=== PATIENT | female | born 1995 | race Caucasian/White ===

== ENCOUNTER 2016-11-28 12:16 | Inpatient (IN) | payer MEDICAID ==
[2016-11-28] MEDS ORDERED: BRETHINE SUB-Q PRN (15:35)
[2016-11-28] MEDS ORDERED: BRETHINE IVP PRN (15:35)
[2016-11-28] MEDS ORDERED: MINERAL OIL PO PRN (15:35)
[2016-11-28] MEDS ORDERED: SUBLIMAZE IV PRN (15:35)
[2016-11-28] MEDS ORDERED: ePHEDrine SULFATE IV PRN (15:35)
[2016-11-28] MEDS ORDERED: STADOL IV PRN (15:35)
[2016-11-28] MEDS ORDERED: XYLOCAINE 2% INFILTRATI ONE (16:00)
[2016-11-28] MEDS ORDERED: PITOCin/NS 20 UNIT/1000ML DRIP 20 UNITS/1,000 ML BAG IV SCH (16:00)
[2016-11-28] MEDS ORDERED: LACTATED RINGERS 1,000 ML IV SCH (16:00)
[2016-11-28] MEDS ORDERED: PITOCin/NS 30 UNIT/500ML 30 UNITS/500 ML BAG IV SCH (16:00)
[2016-11-28 16:25] LABS: Hematocrit 32.6 % (30.3-42.9); Hemoglobin 11.1 gm/dl (10.1-14.3); Mean Corpuscular HGB Conc 34 % (30-34); Mean Corpuscular Hemoglobin 29 pg (28-32); Mean Corpuscular Volume 86 fl (79-97); Platelet Count 183 K/mm3 (140-440); Red Blood Count 3.81 M/mm3 (3.65-5.03); Red Cell Distribution Width 13.3 % (13.2-15.2); White Blood Count 12.6 K/mm3 (4.5-11.0)
--- NOTE | 2016-11-28 17:21 | History and Physical Report ---
History of Present Illness Date of examination: 11/28/16 Date of admission: 11/28/16 12:17 Chief complaint: contractions History of present illness: This is a 21 yo at 39 weeks here for contractions. Came into triage c/o of cotnractions and changed cervix from 3 to 4 cm. She started her care at 18 weeks. OB problem list: late entry positive antibody ( weka) repeat neg OB labs : B+ antibody positieve H/H 10.9/33.5 pap normal Rubella Imm RPR nR urine cultrue neg hep neg HIV neg plt 285 HSV 2 neg AA sickle david neg chlam neg mcneil iup EDC 12/06/16 h/h 10.9/33.2 scan cystic area near nose referred to [facility] david neg chlam neg GBS neg Past History Past Medical History: no pertinent history Past Surgical History: no surgical history Family/Genetic History: diabetes, heart disease, other (hypercholesterolemia ) Social history: no significant social history, single. denies: smoking, alcohol abuse, prescription drug abuse - Obstetrical History Expected Date of Delivery: 12/06/16 Actual Gestation: 38 Week(s) 6 Day(s) : 2 Para: 1 Hx # Term Pregnancies: 1 Number of Pregnancies: 0 Spontaneous Abortions: 0 Induced : 0 Number of Living Children: 1 Medications and Allergies Allergies Allergy/AdvReac Type Severity Reaction Status Date / Time No Known Allergies Allergy Verified 10/23/13 23:46 Home Medications Medication Instructions Recorded Confirmed Last Taken Type Pnv with Ca,No.72/Iron/FA 1 tab PO DAILY 10/13/13 11/28/16 1 Day Ago History [ Plus Tablet] Active Meds: Active Medications Butorphanol Tartrate (Stadol) 2 mg IV Q2H PRN PRN Reason: Pain , Severe (7-10) Last Admin: 11/28/16 16:33 Dose: 2 mg Fentanyl (Sublimaze) 100 mcg IV Q2H PRN PRN Reason: Labor Pain Lactated Ringer's (Lactated Ringers) 1,000 mls @ 125 mls/hr IV DIRECT ARLENE Last Admin: 11/28/16 16:13 Dose: 125 mls/hr Oxytocin/Sodium Chloride (Pitocin/Ns 20 Unit/1000ml Drip) 20 units in 1,000 mls @ 125 mls/hr IV DIRECT ARLENE Oxytocin/Sodium Chloride (Pitocin/Ns 30 Unit/500ml) 30 units in 500 mls @ 1 mls /hr IV TITR ARLENE; 1 MILLIUNITS/MIN PRN Reason: Protocol Last Admin: 11/28/16 16:16 Dose: 2 milliunits/min, 2 mls/hr Mineral Oil (Mineral Oil) 30 ml PO QHS PRN PRN Reason: Constipation Review of Systems All systems: negative Genitourinary: contractions - Vital Signs Vital signs: Vital Signs Pulse BP Pulse Ox 92 H 96/59 96 11/28/16 12:32 11/28/16 12:32 11/28/16 12:32 Temp Pulse Resp BP Pulse Ox 97.4 F L 93 H 16 101/66 97 11/28/16 16:10 11/28/16 16:10 11/28/16 16:10 11/28/16 16:10 11/28/16 12:57 - Physical Exam Breasts: Positive: deferred, normal Cardiovascular: Regular rate, Normal S1 Lungs: Positive: Clear to auscultation, Normal air movement Abdomen: Positive: normal appearance, soft, normal bowel sounds Genitourinary (Female): Positive: normal external genitalia, normal perenium Vulva: both: normal Vagina: Positive: normal moisture Uterus: Positive: normal size, normal contour Adnexa: both: normal Anus/Rectum: Positive: normal perianal skin Extremities: Positive: normal Deep Tendon Reflex Grade: Normal +2 - Obstetrical FHR: category 1 Uterine Contraction Monitor Mode: External Cervical Dilatation: 4 Uterine Contraction Pattern: Irregular Uterine Tone Measurement Phase: Contraction Uterine Contraction Intensity: Mild Results Result Diagrams: 11/28/16 15:10 Abnormal lab results 11/28/16 Range/Units 15:10 WBC 12.6 H (4.5-11.0) K/mm3 All other labs normal. Assessment and Plan A/P IUP 38+6 weeks early labor GBS neg consider pitocin for aumentation expect vaginal delivery
[2016-11-28] MEDS ORDERED: LANSINOH TP PRN (18:54)
[2016-11-28] MEDS ORDERED: DULCOLAX PR PRN (18:54)
[2016-11-28] MEDS ORDERED: MILK OF MAGNESIA PO PRN (18:54)
[2016-11-28] MEDS ORDERED: TUCKS PAD TP PRN (18:54)
[2016-11-28] MEDS ORDERED: PHENERGAN PR PRN (18:54)
[2016-11-28] MEDS ORDERED: TYLENOL PO PRN (18:54)
[2016-11-28] MEDS ORDERED: PHENERGAN PO PRN (18:54)
[2016-11-28] MEDS ORDERED: BENADRYL PO PRN (18:54)
--- NOTE | 2016-11-28 18:54 | Procedure Note ---
OB Delivery Note - Delivery Date of Delivery: 11/28/16 (6-3ozlb female @ 1837) Surgeon: MICHELE COOPER Estimated blood loss: 200cc - Vaginal Delivery presentation: vertex Delivery position: OA Delivery augmentation: rupture of membranes Delivery monitor: external FHT, external uterine Route of delivery: Delivery placenta: spontaneous Delivery cord: 3 umbilical vessels Episiotomy: none Delivery laceration: none Anesthesia: none, epidural - Infant A at 1 minute: 8 at 5 minutes: 9 Infant Gender: Female (Progressed to complete at 1832. Pushed twice for viable female over intact perineum. Short cord, patient placed skin to skin. Spont. placenta, bleeding heavy, Pitocin started and fundus messaged firm. Bleeding scant. No lacerations on inspection.)
[2016-11-28] MEDS ORDERED: SODIUM CHLORIDE FLUSH SYRINGE 10 ML IV SCH (19:00)
[2016-11-28] MEDS: MOTRIN PO SCH (22:24)
[2016-11-29] MEDS: NORCO 5/325 PO PRN (00:52)
[2016-11-29] MEDS: MOTRIN PO SCH ×2 (04:22→10:53)
[2016-11-29 08:04] LABS: Hematocrit 34.3 % (30.3-42.9); Hemoglobin 11.7 gm/dl (10.1-14.3)
--- NOTE | 2016-11-29 08:22 | Progress Note ---
Assessment and Plan O: VSS AF PP H/H: pending A: Stable PP Day 1 P: D/c home per pt request Routine PP orders Subjective - Subjective Date of service: 11/29/16 Patient reports: appetite normal, voiding normally, pain well controlled, ambulating normally : doing well, nursing well Objective - Vital Signs Latest vital signs: Vital Signs Temp Pulse Pulse Resp BP BP Pulse Ox 11/29/16 04:15 98.2 F 59 L 20 87/43 11/29/16 00:52 18 11/29/16 00:00 98.3 F 62 20 98/53 11/28/16 22:24 18 11/28/16 20:45 98.9 F 61 20 97/54 11/28/16 20:02 64 103/56 11/28/16 19:52 56 L 105/56 11/28/16 19:51 97.6 F 66 14 108/55 11/28/16 19:48 66 108/55 11/28/16 19:02 85 109/58 11/28/16 16:10 97.4 F L 93 H 16 101/66 11/28/16 16:08 93 H 101/66 11/28/16 12:57 82 97 11/28/16 12:53 92 H 93 11/28/16 12:52 89 96 11/28/16 12:47 110 H 96 11/28/16 12:42 80 98 11/28/16 12:37 97 H 97 11/28/16 12:32 92 H 96/59 96 Intake and Output 11/28/16 11/29/16 11/29/16 22:59 06:59 14:59 Intake Total 700 Output Total 300 Balance 400 Intake: IV 500 Lactated Ringers 1,000 ml 500 @ 125 mls/hr IV DIRECT ARLENE Rx#:[id number] Oral 200 Output: Urine 300 Void 300 Other: Total, Intake Amount 200 Total, Output Amount 300 Weight 66.678 kg Estimated Blood Loss 200 - Exam Breasts: Present: deferred Abdomen: Present: normal appearance, soft. Absent: distention, tenderness Vulva: both: normal Uterus: Present: normal, firm, fundal height below umbilicus. Absent: bogginess , tenderness Extremities: Present: normal - Labs Labs: Abnormal lab results 11/28/16 Range/Units 15:10 WBC 12.6 H (4.5-11.0) K/mm3
--- NOTE | 2016-11-29 08:24 | Discharge Summary ---
Providers - Providers Date of Admission: 11/28/16 12:17 Date of discharge: 11/29/16 Attending physician: TONI PISANO MD Primary care physician: TONI PISANO MD Hospitalization Reason for admission: active labor, IUP at term Delivery: Episiotomy: none Laceration: none Other procedures: none complications: none Discharge diagnosis: IUP at term delivered Loiza baby: female Condition at discharge: Good Disposition: DC-01 TO HOME OR SELFCARE Plan - Discharge Medications Prescriptions: HYDROcodone/APAP 5-325 [[place] 5-325 mg TAB] 2 each PO Q4H PRN #30 tablet PRN Reason: Pain, Moderate (4-6) Ibuprofen [Motrin 600 MG tab] 600 mg PO Q6HR PRN #30 tablet PRN Reason: Pain - Provider Discharge Summary Activity: routine, no sex for 6 weeks, no heavy lifting 4 weeks, no strenuous exercise Diet: routine Instructions: routine Additional instructions: [] Smoking cessation referral if applicable(refer to patient education folder for contact #) [] Refer to [facility] Booklet Call your doctor immediately for: * Fever > 100.5 * Heavy vaginal bleeding ( >1 pad per hour) * Severe persistent headache * Shortness of breath * Reddened, hot, painful area to leg or breast * Drainage or odor from incision. * Keep incision clean and dry at all times and follow doctor's instructions regarding bathing/showering - Follow up plan Follow up: TONI PISANO MD [Primary Care Provider] - MICHELE COOPER CNM [Advanced Practice Nurse] - (RTO 4 weeks )
[2016-11-29] MEDS ORDERED: M-M-R II VACCINE SUB-Q ONE (18:00)
[2016-11-30] MEDS: NORCO 5/325 PO PRN (01:01)
[2016-11-30] MEDS ORDERED: BOOSTRIX IM ONE (06:00)
[2016-11-30] MEDS: MOTRIN PO SCH ×2 (06:08)
[2016-11-30 09:11] VITALS: BP 95/53
== END 2016-11-30 10:20 | disposition home or self-care (01) | DRG 775 ==
LOC: TRG 12:16 → LD 12:17 → TRG 12:18 → OB 20:58
PROVIDERS: ADMIT Obstetrics & Gynecology; ATTEND Obstetrics & Gynecology
PROC: 10E0XZZ Delivery of Products of Conception, External Approach (ICD-10-PCS; principal; 2016-11-28)
PROC: 00HU33Z Insertion of Infusion Device into Spinal Canal, Percutaneous Approach (ICD-10-PCS; 2016-11-28)
PROC: 3E0R3CZ (ICD-10-PCS; 2016-11-28)
DX: O80 Encounter for full-term uncomplicated delivery (principal); Z3A.38 38 weeks gestation of pregnancy; Z37.0 Single live birth
CPT/HCPCS: 36415; 85014; 85018; 85027; 86850; 86900; 86901; 99211; A6250; G0463; J0595; J2590; J7120

== ENCOUNTER 2017-12-22 20:40 | Outpatient (CLI) | payer MEDICAID ==
[2017-12-22] MEDS ORDERED: LACTATED RINGERS 1,000 ML IV ONE (21:01)
[2017-12-22 21:28] VITALS: BP 101/57
[2017-12-22 21:31] LABS: Bilirubin,Urine NEG (Negative); Blood,Urine SM (Negative); Color,Urine Yellow (Yellow); Mucus,Urine FEW /HPF; Urobilinogen,Urine < 2.0 mg/dL (<2.0)
[2017-12-22] MEDS ORDERED: ANCEF/NS 1 GM/50 ML 1 GM/50 ML BAG IV ONE (22:11)
== END 2017-12-22 23:36 | disposition home or self-care (01) ==
LOC: TRG 20:40
PROVIDERS: ATTEND Obstetrics & Gynecology
DX: O47.02 False labor before 37 completed weeks of gestation, second trimester (principal); Z3A.20 20 weeks gestation of pregnancy
CPT/HCPCS: 81001; 96360; 96361; 96365; J0690; J7120

== ENCOUNTER 2017-12-26 20:23 | Outpatient (CLI) | payer MEDICAID ==
[2017-12-26] MEDS ORDERED: LACTATED RINGERS 1,000 ML IV ONE ×2 (20:53→22:39)
[2017-12-26 21:14] LABS: Bacteria,Urine 2+ /HPF (Negative); Bilirubin,Urine NEG (Negative); Blood,Urine NEG (Negative); Color,Urine Yellow (Yellow); Mucus,Urine 2+ /HPF
[2017-12-26 21:15] LABS: WBC,Urine > 182.0 /HPF (0.0-6.0)
[2017-12-26 22:56] LABS: Hematocrit 27.8 % (30.3-42.9); Hemoglobin 9.4 gm/dl (10.1-14.3); Mean Corpuscular HGB Conc 34 % (30-34); Mean Corpuscular Hemoglobin 30 pg (28-32); Mean Corpuscular Volume 88 fl (79-97); Platelet Count 243 K/mm3 (140-440); Red Blood Count 3.15 M/mm3 (3.65-5.03); Red Cell Distribution Width 12.6 % (13.2-15.2)
[2017-12-26] MEDS ORDERED: ROCEPHIN/NS 1 GM/50 ML 1 GM/50 ML BAG IV ONE (23:00)
[2017-12-26 23:41] LABS: Albumin 3.6 g/dL (3.9-5); BUN/Creatinine Ratio 13; Blood Urea Nitrogen 5 mg/dL (7-17); Hemolysis Index 0
[2017-12-26 23:54] LABS: Alanine Aminotransferase < 5 units/L (7-56)
[2017-12-27] MEDS ORDERED: TYLENOL PO ONE (00:12)
[2017-12-27 00:30] VITALS: BP 101/53
== END 2017-12-27 00:45 | disposition home or self-care (01) ==
LOC: TRG 20:23
PROVIDERS: ATTEND Obstetrics & Gynecology
DX: O26.892 Other specified pregnancy related conditions, second trimester (principal); R10.11 Right upper quadrant pain; Z3A.20 20 weeks gestation of pregnancy
CPT/HCPCS: 36415; 80053; 81001; 85027; 86850; 86900; 86901; 87086; 96360; 96361; 96365; J0696; J7120; 87076; 87186

== ENCOUNTER 2018-01-01 08:20 | Inpatient (IN) | payer MEDICAID ==
[2018-01-01] MEDS ORDERED: LACTATED RINGERS 500 ML IV ONE ×2 (08:22→10:30)
[2018-01-01] MEDS ORDERED: LACTATED RINGERS 1,000 ML ONE ×2 (08:47→13:28)
[2018-01-01 09:10] LABS: Basophils # (Auto) 0.1 K/mm3 (0.0-0.1); Basophils % (Auto) 0.5 % (0.0-1.8); Eosinophils % (Auto) 0.3 % (0.0-4.3); Hematocrit 28.7 % (30.3-42.9); Hemoglobin 9.9 gm/dl (10.1-14.3); Lymphocytes # (Auto) 2.6 K/mm3 (1.2-5.4); Lymphocytes % (Auto) 23.5 % (13.4-35.0); Mean Corpuscular HGB Conc 35 % (30-34); Mean Corpuscular Hemoglobin 30 pg (28-32); Mean Corpuscular Volume 87 fl (79-97); Monocytes # (Auto) 0.9 K/mm3 (0.0-0.8); Monocytes % (Auto) 7.9 % (0.0-7.3); Red Blood Count 3.29 M/mm3 (3.65-5.03); Red Cell Distribution Width 12.8 % (13.2-15.2)
[2018-01-01 09:19] LABS: Bacteria,Urine 2+ /HPF (Negative); Bilirubin,Urine NEG (Negative); Blood,Urine NEG (Negative); Color,Urine Yellow (Yellow); Mucus,Urine 1+ /HPF; Protein,Urine <15 mg/dL mg/dL (Negative); Urobilinogen,Urine < 2.0 mg/dL (<2.0)
[2018-01-01] MEDS ORDERED: ANCEF/NS 1 GM/50 ML 1 GM/50 ML BAG IV ONE (10:30)
[2018-01-01 11:17] LABS: Platelet Count 314 K/mm3 (140-440)
[2018-01-01] MEDS: BRETHINE SUB-Q SCH ×2 (11:46→12:15)
[2018-01-01] MEDS ORDERED: CYTOTEC PR SCH (14:00)
[2018-01-01] MEDS ORDERED: TYLENOL PO PRN ×2 (14:21→14:54)
[2018-01-01] MEDS ORDERED: MAGNESIUM SULFATE 4GM/100ML 4 GM/100 ML BAG IV ONE (14:21)
[2018-01-01] MEDS ORDERED: COLACE PO PRN (14:21)
[2018-01-01] MEDS ORDERED: POLYCILLIN/NS 2 GM/100 ML 2 GM/100 ML BAG IV ONE (14:21)
[2018-01-01] MEDS ORDERED: CYTOTEC ONE (14:29)
[2018-01-01] MEDS ORDERED: PITOCin/NS 20 UNIT/1000ML DRIP 20,000 MILLIUNITS/1,000 ML BAG IV ONE ×3 (14:29→18:34)
[2018-01-01] MEDS ORDERED: METHERGINE IM ONE (14:35)
--- NOTE | 2018-01-01 14:43 | History and Physical Report ---
History of Present Illness Date of examination: 01/01/18 Chief complaint: Abdominal pains History of present illness: Pt is a 22yo HF EDC 05/09/18; EGA 21 5/7 weeks presents to [facility] L&D complaining of abdominal pains since this morning. Pt received IV fluids, SQ Terb without improvement, and when examined was found to be have a BBOW @ her introitus. She had not received any care with this . Past History Past Medical History: no pertinent history Past Surgical History: no surgical history Family/Genetic History: none Social history: no significant social history, single - Obstetrical History Expected Date of Delivery: 05/09/18 Actual Gestation: 21 Week(s) 5 Day(s) : 3 Medications and Allergies Allergies Allergy/AdvReac Type Severity Reaction Status Date / Time No Known Allergies Allergy Verified 10/23/13 23:46 Home Medications Medication Instructions Recorded Confirmed Last Taken Type Pnv with Ca,No.72/Iron/FA 1 tab PO DAILY 10/13/13 12/27/17 12/26/17 History [ Plus Tablet] Active Meds: Active Medications Acetaminophen (Tylenol) 650 mg PO Q4H PRN PRN Reason: Pain MILD(1-3)/Fever >100.5/KAY Docusate Sodium (Colace) 100 mg PO Q12H PRN PRN Reason: Constipation Ampicillin Sodium (Ampicillin/Ns 1 Gm/50 Ml) 1 gm in 50 mls @ 100 mls/hr IV Q4HR ARLENE; Protocol Ampicillin Sodium (Polycillin/Ns 2 Gm/100 Ml) 2 gm in 100 mls @ 100 mls/hr IV ONCE ONE; Protocol Stop: 01/01/18 15:20 Lactated Ringer's (Lactated Ringers) 1,000 mls @ 125 mls/hr IV DIRECT ARLENE Magnesium Sulfate (Magnesium Sulfate 40gm/1000ml) 40 gm in 1,000 mls @ 50 mls/ hr IV DIRECT ARLENE Magnesium Sulfate (Magnesium Sulfate 4gm/100ml) 4 gm in 100 mls @ 300 mls/hr IV ONCE ONE Stop: 01/01/18 14:40 Multivitamins/Iron/Calcium ( Vitamin) 1 each PO QDAY ARLENE Terbutaline Sulfate (Brethine) 0.25 mg SUB-Q Q20MIN ARLENE Stop: 01/03/18 10:01 Last Admin: 01/01/18 12:15 Dose: 0.25 mg Review of Systems All systems: negative - Vital Signs Vital signs: Vital Signs Temp Pulse Resp BP 97.5 F L 73 17 107/61 01/01/18 08:37 01/01/18 08:37 01/01/18 08:37 01/01/18 08:37 Temp Pulse Resp BP Pulse Ox 97.5 F L 73 17 107/61 01/01/18 08:37 01/01/18 08:37 01/01/18 08:37 01/01/18 08:37 - Physical Exam Breasts: Positive: deferred Cardiovascular: Regular rate Lungs: Positive: Clear to auscultation Abdomen: Positive: normal appearance Vagina: Positive: normal moisture Cervix: Positive: other (BBOW) Uterus: Positive: enlarged Extremities: Positive: normal - Obstetrical Uterine Contraction Monitor Mode: External Uterine Contraction Pattern: Regular Uterine Tone Measurement Phase: Contraction Uterine Contraction Intensity: Strong/Firm Results Result Diagrams: 01/01/18 08:55 Abnormal lab results 01/01/18 01/01/18 Range/Units 08:55 08:55 WBC 11.2 H (4.5-11.0) K/mm3 RBC 3.29 L (3.65-5.03) M/mm3 Hgb 9.9 L (10.1-14.3) gm/dl Hct 28.7 L (30.3-42.9) % MCHC 35 H (30-34) % RDW 12.8 L (13.2-15.2) % Coal % (Auto) 7.9 H (0.0-7.3) % [place] # 0.9 H (0.0-0.8) K/mm3 Urine WBC (Auto) 77.0 H (0.0-6.0) /HPF All other labs normal. Ultrasound: pending Assessment and Plan - Patient Problems (1) 21 weeks gestation of Onset Date: 01/01/18 Current Visit: Yes Status: Acute Plan to address problem: A: IUP @ 21 5/7 weeks contractions No care P: Admit to L&D for IV Magnesium sulfate for tocolysis Obtain Ob u/s NICU consultation (2) contractions Onset Date: 01/01/18 Current Visit: Yes Status: Acute
--- NOTE | 2018-01-01 14:53 | Procedure Note ---
OB Delivery Note - Delivery Date of Delivery: 01/01/18 Surgeon: ZAK PISANO Estimated blood loss: other (600cc) - Vaginal Delivery presentation: breech Intrapartum events: no care, labor-<37 weeks, precipitous labor - <3hr Delivery induction: none Delivery monitor: external FHT, external uterine Route of delivery: breech extraction Delivery placenta: spontaneous Delivery cord: 3 umbilical vessels Episiotomy: none Delivery laceration: none Anesthesia: none Delivery comments: Non-viable male fetus delivered and handed to awaiting Peds/RT - A at 1 minute: 2 (495gms) at 5 minutes: 2 Infant Gender: Male
[2018-01-01] MEDS ORDERED: PHENERGAN PO PRN (14:54)
[2018-01-01] MEDS ORDERED: DULCOLAX PR PRN (14:54)
[2018-01-01] MEDS ORDERED: ZOFRAN IV PRN (14:54)
[2018-01-01] MEDS ORDERED: TUCKS PAD TP PRN (14:54)
[2018-01-01] MEDS ORDERED: MILK OF MAGNESIA PO PRN (14:54)
[2018-01-01] MEDS ORDERED: BENADRYL PO PRN (14:54)
[2018-01-01] MEDS ORDERED: PHENERGAN PR PRN (14:54)
[2018-01-01] MEDS ORDERED: LANSINOH TP PRN (14:54)
[2018-01-01] MEDS ORDERED: MAGNESIUM SULFATE 40GM/1000ML 40 GM/1,000 ML BAG IV SCH (15:00)
[2018-01-01] MEDS ORDERED: LACTATED RINGERS 1,000 ML IV SCH (15:00)
[2018-01-01] MEDS ORDERED: SODIUM CHLORIDE FLUSH SYRINGE 10 ML IV SCH (15:00)
--- NOTE | 2018-01-01 17:09 | Event Note ---
Date: 01/01/18 Delivery attendance Note Code jimy called for delivery of fetus suspected to be 21w 5d from ultrasound at presentation today. Mother had no care and presented with contractions today - Did not respond to tocolysis. On exam immediately following delivery: Extremely male gelatinous skin, fused eyes, no spontaneous respirations HR: 60 bpm, no spontaneous respirations or movements PPV initiated via bag and mask - initial response to 90bpm, however not sustained. HR remained 60 -70 with spO2 ranging from 1% - 17% on 100% FiO2 with PPV via bag and mask Gasping respirations noted Continued PPV for approx 5 mins with no response I informed mother that her baby was extremely premature and not responding to ventilatory steps of resuscitation and asked if she wanted to hold her baby. Mother indicated that she wanted to hold her baby. Baby was bundled up and handed over to mother for comfort care. Impression: Extremely premature non-viable infant
[2018-01-01] MEDS: MOTRIN PO SCH (17:10)
[2018-01-01] MEDS ORDERED: AMPICILLIN/NS 1 GM/50 ML 1 GM/50 ML BAG IV SCH (18:23)
[2018-01-01 18:45] LABS: Amphetamine Screen,Urine PRESUMPTIVE NEGATIVE; Benzodiazepines Screen,Urine PRESUMPTIVE NEGATIVE; Cannabinoid Screen,Urine PRESUMPTIVE NEGATIVE; Cocaine Screen,Urine PRESUMPTIVE NEGATIVE; Methadone Screen,Urine PRESUMPTIVE NEGATIVE; Opiate Screen,Urine PRESUMPTIVE NEGATIVE
[2018-01-01] MEDS ORDERED: PITOCin/NS 20 UNIT/1000ML DRIP 20 UNITS/1,000 ML BAG IV SCH (20:00)
[2018-01-01] MEDS: FEOSOL PO SCH (21:05)
[2018-01-01] MEDS: NORCO 5/325 PO PRN (21:06)
[2018-01-01] MEDS: METHERGINE PO SCH (22:37)
[2018-01-02] MEDS: MOTRIN PO SCH ×3 (00:15→18:10)
[2018-01-02 02:24] LABS: Hematocrit 20.7 % (30.3-42.9); Hemoglobin 7.2 gm/dl (10.1-14.3)
[2018-01-02] MEDS ORDERED: D5LR 1,000 ML IV SCH (03:00)
[2018-01-02] MEDS ORDERED: BOOSTRIX IM ONE (06:00)
--- NOTE | 2018-01-02 08:52 | Progress Note ---
Assessment and Plan - Patient Problems (1) 21 weeks gestation of Onset Date: 01/01/18 Current Visit: Yes Status: Resolved (2) contractions Onset Date: 01/01/18 Current Visit: Yes Status: Resolved (3) (normal spontaneous vaginal delivery) Onset Date: 01/02/18 Current Visit: Yes Status: Resolved Plan to address problem: A: S/P ( demise) - PPD #1 Doing well Asymptomatic anemia - stable P: May go home today. Subjective - Subjective Date of service: 01/02/18 Principal diagnosis: s/p - PPD #1 Interval history: Pt is feeling well without complaints. Bleeding improved. Patient reports: appetite normal, voiding normally, pain well controlled, ambulating normally, no dizzy ambulation, no nauseated [place]: Objective - Vital Signs Latest vital signs: Vital Signs Temp Pulse Resp BP 01/02/18 04:20 98.0 F 62 18 87/53 01/02/18 00:15 18 01/02/18 00:00 98.2 F 66 18 94/54 01/01/18 22:06 18 01/01/18 21:06 20 01/01/18 19:45 98.2 F 81 18 87/46 Intake and Output 01/01/18 01/02/18 01/02/18 22:59 06:59 14:59 Intake Total 360 Balance 360 Intake: Oral 360 Other: Total, Intake Amount 240 # Voids Void 1 Estimated Blood Loss 600 - Exam Breasts: Present: deferred Cardiovascular: Present: Regular rate Lungs: Present: Clear to auscultation Abdomen: Present: normal appearance, soft Uterus: Present: normal, firm, fundal height below umbilicus Extremities: Present: normal - Labs Labs: Abnormal lab results 01/01/18 01/01/18 01/02/18 Range/Units 08:55 08:55 01:29 WBC 11.2 H (4.5-11.0) K/mm3 RBC 3.29 L (3.65-5.03) M/mm3 Hgb 9.9 L 7.2 L (10.1-14.3) gm/dl Hct 28.7 L 20.7 L D (30.3-42.9) % MCHC 35 H (30-34) % RDW 12.8 L (13.2-15.2) % [place] % (Auto) 7.9 H (0.0-7.3) % [place] # 0.9 H (0.0-0.8) K/mm3 Urine WBC (Auto) 77.0 H (0.0-6.0) /HPF Laboratory Tests 01/01/18 01/01/18 01/01/18 08:55 08:55 15:50 WBC 11.2 H RBC 3.29 L Hgb 9.9 L Hct 28.7 L MCV 87 MCH 30 MCHC 35 H RDW 12.8 L Plt Count 314 Lymph % (Auto) 23.5 [place] % (Auto) 7.9 H Eos % (Auto) 0.3 Baso % (Auto) 0.5 Lymph # 2.6 [place] # 0.9 H Eos # 0.0 Baso # 0.1 Seg Neutrophils % 67.8 Seg Neutrophils # 7.6 Urine Color Yellow Urine Turbidity Hazy Urine pH 6.0 Ur Specific [place] 1.016 Urine Protein <15 mg/dl Urine Glucose (UA) Neg Urine Ketones 20 Urine Blood Neg Urine Nitrite Neg Urine Bilirubin Neg Urine Urobilinogen < 2.0 Ur Leukocyte Esterase Lg Urine WBC (Auto) 77.0 H Urine RBC (Auto) 9.0 U Epithel Cells (Auto) 10.0 Urine Bacteria (Auto) 2+ Urine Mucus 1+ Urine Opiates Screen Urine Methadone Screen Ur Barbiturates Screen Ur Phencyclidine Scrn Ur Amphetamines Screen U Benzodiazepines Scrn Urine Cocaine Screen U Marijuana (THC) Screen Drugs of Abuse Note HIV 1&2 Antibody Rapid HIV P24 Antigen Blood Type B POSITIVE Antibody Screen Negative 01/01/18 01/01/18 01/02/18 16:05 16:25 01:29 WBC RBC Hgb 7.2 L Hct 20.7 L D MCV MCH MCHC RDW Plt Count Lymph % (Auto) [place] % (Auto) Eos % (Auto) Baso % (Auto) Lymph # [place] # Eos # Baso # Seg Neutrophils % Seg Neutrophils # Urine Color Urine Turbidity Urine pH Ur Specific [place] Urine Protein Urine Glucose (UA) Urine Ketones Urine Blood Urine Nitrite Urine Bilirubin Urine Urobilinogen Ur Leukocyte Esterase Urine WBC (Auto) Urine RBC (Auto) U Epithel Cells (Auto) Urine Bacteria (Auto) Urine Mucus Urine Opiates Screen Presumptive negative Urine Methadone Screen Presumptive negative Ur Barbiturates Screen Presumptive negative Ur Phencyclidine Scrn Presumptive negative Ur Amphetamines Screen Presumptive negative U Benzodiazepines Scrn Presumptive negative Urine Cocaine Screen Presumptive negative U Marijuana (THC) Screen Presumptive negative Drugs of Abuse Note Disclamer HIV 1&2 Antibody Rapid Non react HIV P24 Antigen Non react Blood Type Antibody Screen
[2018-01-02] MEDS ORDERED: PRENATAL VITAMIN PO SCH (10:00)
[2018-01-02] MEDS: FEOSOL PO SCH (11:03)
[2018-01-02] MEDS: NORCO 5/325 PO PRN (11:05)
[2018-01-02] MEDS: METHERGINE PO SCH ×2 (11:05→14:20)
--- NOTE | 2018-01-02 14:33 | Discharge Summary ---
Providers - Providers Date of Admission: 01/01/18 14:35 Date of discharge: 01/02/18 Attending physician: ZAK PISANO 01/01/18 14:21 Consult to Physician [CONS] Stat Comment: Consulting Provider: JACQUELIN GIL Physician Instructions: Reason For Exam: contractions Primary care physician: CUSTOM BOW MAKER Hospitalization Reason for admission: IUP - , labor, rupture of membranes Delivery: Episiotomy: none Laceration: none Other procedures: none complications: none Discharge diagnosis: intrapartum demise baby: male Hospital course: Pt is a 22yo HF EDC 05/09/18; EGA 21 5/ weeks who presented to [facility] L&D complaining of abdominal pains unresolved with IV fluids or SQ Terb, and when examined was found to be have a BBOW @ her introitus. She subsequently delivered a non-viable male fetus. She had not received any care with this . Post course was unremarkable, and she was therefore discharged to home on PPD #1 in stable condition. Condition at discharge: Good Disposition: DC-01 TO HOME OR SELFCARE - Discharge Diagnoses (1) 21 weeks gestation of Status: Resolved (2) contractions Status: Resolved (3) premature rupture of membranes (PPROM) with onset of labor after 24 hours of rupture in second trimester, antepartum Status: Resolved Plan - Discharge Medications Prescriptions: Ferrous Sulfate [Feosol 325 MG tab] 325 mg PO BID #60 tablet Ibuprofen [Motrin 600 MG tab] 600 mg PO Q6HR #30 tablet Vit-Fe Fumar-FA [ Vitamin] 1 each PO QDAY #30 tablet - Provider Discharge Summary Activity: routine, no sex for 6 weeks, no heavy lifting 4 weeks, no strenuous exercise Diet: routine Instructions: routine Additional instructions: [] Smoking cessation referral if applicable(refer to patient education folder for contact #) [] Refer to [facility] Booklet Call your doctor immediately for: * Fever > 100.5 * Heavy vaginal bleeding ( >1 pad per hour) * Severe persistent headache * Shortness of breath * Reddened, hot, painful area to leg or breast * Drainage or odor from incision. * Keep incision clean and dry at all times and follow doctor's instructions regarding bathing/showering - Follow up plan Follow up: PRIMARY CARE,MD [Primary Care Provider] - 6 Weeks ZAK PISANO MD [Staff Physician] - 6 Weeks
[2018-01-02] MEDS ORDERED: M-M-R II VACCINE SUB-Q ONE (14:54)
[2018-01-02 18:54] VITALS: BP 108/69
== END 2018-01-02 19:00 | disposition home or self-care (01) | DRG 775 ==
LOC: TRG 08:20 → LD 14:35 → OB 18:50
PROVIDERS: ADMIT Obstetrics & Gynecology; ATTEND Obstetrics & Gynecology
PROC: 10D07Z8 Extraction of Products of Conception, Other, Via Natural or Artificial Opening (ICD-10-PCS; principal; 2018-01-01)
PROC: 3E0234Z Introduction of Serum, Toxoid and Vaccine into Muscle, Percutaneous Approach (ICD-10-PCS; 2018-01-02)
DX: O62.3 Precipitate labor (principal); O60.12X0 Preterm labor second trimester with preterm delivery second trimester, not applicable or unspecified; O36.4XX0 Maternal care for intrauterine death, not applicable or unspecified; O08.89 Other complications following an ectopic and molar pregnancy; O99.03 Anemia complicating the puerperium; D64.9 Anemia, unspecified; Z3A.21 21 weeks gestation of pregnancy; Z37.1 Single stillbirth; Z23 Encounter for immunization
CPT/HCPCS: 36415; 80307; 81001; 85014; 85018; 85025; 86592; 86762; 86850; 86900; 86901; 87806; 88305; J0690; J2210; J2590; J3105; J7120; J7121

== ENCOUNTER 2019-03-01 06:33 | Emergency (ER) | payer OTHER, MEDICAID ==
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
[2019-03-01] MEDS ORDERED: ZOFRAN ODT PO ONE (08:00)
[2019-03-01] MEDS ORDERED: NORCO 5/325 PO ONE (08:00)
[2019-03-01] MEDS ORDERED: FLEXERIL PO ONE (08:00)
[2019-03-01 08:52] LABS: HCG Qualitative,Urine Negative (Negative)
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
[2019-03-01] MEDS ORDERED: BOOSTRIX IM ONE (11:21)
[2019-03-01 11:45] VITALS: BP 103/60
== END 2019-03-01 12:27 | disposition home or self-care (01) ==
LOC: ED 06:33
DX: S29.012A Strain of muscle and tendon of back wall of thorax, initial encounter (principal); S00.511A Abrasion of lip, initial encounter; R03.0 Elevated blood-pressure reading, without diagnosis of hypertension; M79.10 Myalgia, unspecified site; Z79.899 Other long term (current) drug therapy; V09.9XXA Pedestrian injured in unspecified transport accident, initial encounter; Y93.89 Activity, other specified; Y92.488 Other paved roadways as the place of occurrence of the external cause; Y99.8 Other external cause status
CPT/HCPCS: 70150; 72040; 72072; 72100; 81025; 90471; 90715; Q0162

== ENCOUNTER 2020-04-13 15:22 | Inpatient (IN) | payer MEDICAID ==
[2020-04-13] MEDS ORDERED: LACTATED RINGERS 1,000 ML ONE ×2 (16:32→16:34)
[2020-04-13] MEDS ORDERED: ePHEDrine SULFATE 50 MG/1 ML INJ IV PRN ×2 (16:34→16:53)
[2020-04-13] MEDS ORDERED: miSOPROStol 200 MCG TAB PR PRN (16:34)
[2020-04-13] MEDS ORDERED: fentaNYL 100 MCG/2 ML INJ IV PRN (16:34)
[2020-04-13] MEDS ORDERED: LIDOCAINE (2%) 20 MG/1 ML VIAL 20 ML MDV INFILTRATI ONE ×2 (16:34→20:32)
[2020-04-13] MEDS ORDERED: BUTORPHANOL 2 MG/1 ML INJ IV PRN (16:34)
[2020-04-13] MEDS ORDERED: TERBUTALINE 1 MG/1 ML INJ SUB-Q PRN (16:34)
[2020-04-13] MEDS ORDERED: METHYLERGONOVINE MALEATE 0.2 MG/ML VIAL IM PRN (16:34)
[2020-04-13] MEDS ORDERED: MINERAL OIL 30 ML ORAL LIQD PO PRN (16:34)
[2020-04-13] MEDS ORDERED: ONDANSETRON 4 MG/2 ML INJ IV PRN ×2 (16:34→22:47)
[2020-04-13] MEDS ORDERED: NALOXONE 0.4 MG/1 ML INJ IV PRN (16:34)
--- NOTE | 2020-04-13 16:43 | History and Physical Report ---
History of Present Illness Date of examination: 04/13/20 Chief complaint: contractions History of present illness: Pt is a 25 year old female CHRISTINE 04/12/20 at 40w1d who presents with regular contractions and advanced cervical dilation. She denies leakage of fluid or vaginal bleeding. She has had care at [facility] since 15 wks complicated by a h/o 21 wk delivery in 2018, and iron-deficiency anemia on iron supplementation. She is GBS Negative. 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: other (h/o condyloma ) Family/Genetic History: heart disease Social history: no significant social history - Obstetrical History Expected Date of Delivery: 04/12/20 Actual Gestation: 40 Week(s) 1 Day(s) : 4 Para: 3 Hx # Term Pregnancies: 2 Number of Pregnancies: 1 (21 wk delivery, nonviable male ) Spontaneous Abortions: 0 Induced : 0 Number of Living Children: 2 Medications and Allergies Allergies Allergy/AdvReac Type Severity Reaction Status Date / Time No Known Allergies Allergy Verified 10/23/13 23:46 Home Medications Medication Instructions Recorded Confirmed Last Taken Type Pnv with Ca,No.72/Iron/FA 1 tab PO DAILY 10/13/13 01/02/18 1 Day Ago History [ Plus Tablet] ~01/01/18 Ferrous Sulfate [Feosol 325 MG tab] 325 mg PO BID #60 tablet 01/02/18 Unknown Rx Ibuprofen [Motrin 600 MG tab] 600 mg PO Q6HR #30 tablet 01/02/18 Unknown Rx Vit-Fe Fumar-FA [ 1 each PO QDAY #30 tablet 01/02/18 Unknown Rx Vitamin] Cyclobenzaprine [Flexeril] 10 mg PO TID PRN #12 tablet 03/01/19 Unknown Rx Ibuprofen [Motrin] 600 mg PO Q8H PRN #12 tablet 03/01/19 Unknown Rx Active Meds: Active Medications Butorphanol Tartrate (Stadol) 2 mg IV Q2H PRN PRN Reason: Pain , Severe (7-10) Ephedrine Sulfate (Ephedrine Sulfate) 10 mg IV Q2M PRN PRN Reason: Hypotension Fentanyl (Sublimaze) 100 mcg IV Q2H PRN PRN Reason: Pain,Severe (7-10) LABOR PAIN Oxytocin/Sodium Chloride (Pitocin/Ns 30 Unit/500ml) 30 units in 500 mls @ 2 mls/hr IV TITR ARLENE; Protocol Lactated Ringer's (Lactated Ringers) 1,000 mls @ 125 mls/hr IV DIRECT ARLENE Oxytocin/Sodium Chloride (Pitocin/Ns 30 Unit/500ml) 30 units in 500 mls @ 40 mls/hr IV TITR ARLENE; Protocol Methylergonovine Maleate (Methergine) 0.2 mg IM ONCE PRN PRN Reason: Uterine Bleeding Mineral Oil (Mineral Oil) 30 ml PO QHS PRN PRN Reason: Constipation Misoprostol (Cytotec) 800 mcg SD ONCE PRN PRN Reason: Uterine Bleeding Naloxone HCl (Naloxone) 0.1 mg IV Q2MIN PRN PRN Reason: Res Rate </= 8 or 02 SAT < 92% Ondansetron HCl (Zofran) 4 mg IV Q8H PRN PRN Reason: Nausea And Vomiting Terbutaline Sulfate (Brethine) 0.25 mg SUB-Q ONCE PRN PRN Reason: Hyperstimulation/Hypertonicity Review of Systems All systems: negative - Vital Signs Vital signs: Vital Signs Pulse Pulse Ox 89 99 03/29/20 19:27 03/29/20 19:27 Temp Pulse Resp BP Pulse Ox 98.3 F 93 H 18 117/63 95 04/13/20 16:04 04/13/20 16:42 04/13/20 16:04 04/13/20 16:33 04/13/20 16:42 - Physical Exam Breasts: Positive: deferred Abdomen: Positive: soft (obese, gravid ) Uterus: Positive: enlarged (gravid ) - Obstetrical FHR: auscultation normal Uterine Contraction Monitor Mode: External Cervical Dilatation: 6 (per RN ) Cervical Effacement Percentage: 80 station: -2 Uterine Contraction Pattern: Regular Uterine Tone Measurement Phase: Resting Uterine Contraction Intensity: Strong/Firm Results All other labs normal. Assessment and Plan A: IUP at 40w1d Active Labor Obesity Anemia GBS Negative P: Admit to labor and delivery Routine intrapartum care Epidural as desired Closely monitor maternal and status
[2020-04-13] MEDS ORDERED: NALOXONE 2 MG/2 ML INJ IV PRN (16:53)
[2020-04-13] MEDS: LACTATED RINGERS 1,000 ML IV SCH ×2 (16:53→18:38)
[2020-04-13] MEDS ORDERED: fentaNYL-BUPIV 2 MCG/ML-0.125% 200 MCG/100 ML BAG EPIDURAL SCH (17:00)
[2020-04-13] MEDS ORDERED: OXYTOCIN DRIP 30 UNITS/500 ML BAG IV SCH ×2 (17:00)
[2020-04-13 17:28] LABS: Hematocrit 29.9 % (30.3-42.9); Hemoglobin 9.6 gm/dl (10.1-14.3); Mean Corpuscular HGB Conc 32 % (30-34); Mean Corpuscular Volume 75 fl (79-97); Platelet Count 209 K/mm3 (140-440); Red Blood Count 3.98 M/mm3 (3.65-5.03); Red Cell Distribution Width 16.1 % (13.2-15.2)
--- NOTE | 2020-04-13 18:31 | Anesthesia Consultation ---
Anesthesia Consult and Med Hx Date of service: 04/13/20 - Pulmonary Hx Asthma: No COPD: No Hx Pneumonia: No - Cardiovascular System Hx Hypertension: No - Central Nervous System Hx Seizures: No Hx Psychiatric Problems: No - Endocrine Hx Renal Disease: No Hx End Stage Renal Disease: No Hx Hypothyroidism: No Hx Hyperthyroidism: No - Hematic Hx Anemia: No Hx Sickle Cell Disease: No - Other Systems Hx Alcohol Use: No
--- NOTE | 2020-04-13 18:33 | Progress Note ---
Labor Epidural - Labor Epidural Start Time: 18:08 Stop Time: 18:17 Performed by:: MAKAYLA ROONEY Procedure: Patient is requesting a laboring epidural for laboring pain. Patient IDed, H&P reviewed, all questions and concerns were answered, and consent was signed. Timeout was performed at bedside. Patient in sitting position. Sterile prep and drape was performed. 3ml of 1% lidocaine skin wheal at L[4]- L [5]. 18- gauge Tuohy epidural needle was advanced to loss of resistance with air technique to 5cm. Negative CSF negative blood. Epidural catheter advanced to [10] centimeters. [negative] Aspiration [negative] test dose. Sterile dressing applied. Patient tolerated procedure.
--- NOTE | 2020-04-13 19:11 | Event Note ---
Date: 04/13/20 Pt comfortable with epidural. Category II tracing. SVE: /-1. AROM- clear fluid. Begin pitocin augmentation. Continue routine intrapartum care. Closely monitor maternal and status.
--- NOTE | 2020-04-13 21:45 | Procedure Note ---
OB Delivery Note - Delivery Date of Delivery: 04/13/20 Surgeon: DENZEL MENDEZ Estimated blood loss: other (400 mL) - Vaginal Delivery presentation: compound Delivery position: OA Intrapartum events: PROM->1hr before delivery, decreased FHT variability, mult.variable deceleratio, uterine atony Delivery induction: none Delivery augmentation: rupture of membranes, pitocin Delivery monitor: external FHT, external uterine Route of delivery: Delivery placenta: spontaneous Delivery cord: nuchal cord (doubly clamped and cut ) Episiotomy: none Delivery laceration: none Anesthesia: epidural - Infant A at 1 minute: 8 at 5 minutes: 9 Infant Gender: Male (3823g (8lb 7oz) @ 2133 pm)
[2020-04-13] MEDS ORDERED: WITCH HAZEL/ GLYCERIN PAD TP PRN (22:47)
[2020-04-13] MEDS ORDERED: MAGNESIUM HYDROXIDE (MOM) ORAL LIQD UDC PO PRN (22:47)
[2020-04-13] MEDS ORDERED: ACETAMINOPHEN 325 MG TAB PO PRN (22:47)
[2020-04-13] MEDS ORDERED: PROMETHAZINE 25 MG TAB PO PRN (22:47)
[2020-04-13] MEDS ORDERED: LANOLIN/ZINC/DIMETHICONE (LANSINOH) 7 GM TP PRN ×2 (22:47)
[2020-04-13] MEDS ORDERED: BENZOCAINE/MENTHOL 20/0.5% TOP SPRAY 56 GM TP PRN (22:47)
[2020-04-13] MEDS ORDERED: PROMETHAZINE 25 MG RECT SUPP PR PRN (22:47)
[2020-04-13] MEDS ORDERED: diphenhydrAMINE 25 MG CAP PO PRN (22:47)
[2020-04-13] MEDS: HYDROcodone/ACETAMINOPHEN 5-325 MG TAB PO PRN (22:53)
[2020-04-14] MEDS: IBUPROFEN 600 MG TAB PO SCH ×4 (05:54→22:10)
--- NOTE | 2020-04-14 07:31 | Progress Note ---
Assessment and Plan A: 04/13, PPD1 Antepartum anemia (Hgb 9.6 on admit), asymptomatic 400 EBL VSS Intact perineum Pain well controlled doing well, breast/bottle P: D/c today after 24h or 04/15 consult prior to d/c [facility] to order breast pump Ferrous sulfate supplementation Subjective - Subjective Date of service: 04/14/20 Principal diagnosis: S/p Interval history: PPD1 from uncomplicated Patient reports: appetite normal, voiding normally, pain well controlled, ambulating normally, no dizzy ambulation, no bowel movement [place]: doing well, nursing well, bottle feeding Objective - Vital Signs Latest vital signs: Vital Signs Temp Pulse Resp BP BP Pulse Ox 04/14/20 05:17 98.4 F 53 L 20 100/61 98 04/14/20 00:00 98.0 F 72 20 98/49 04/13/20 22:53 18 04/13/20 21:58 73 107/63 04/13/20 21:46 87 92 04/13/20 21:44 69 98 04/13/20 21:39 70 98 04/13/20 21:37 67 116/56 04/13/20 21:34 118 H 99 04/13/20 21:32 88 152/104 04/13/20 21:30 86 156/90 04/13/20 21:29 80 98 04/13/20 21:24 70 97 04/13/20 21:19 79 90 04/13/20 21:14 63 99 04/13/20 21:09 63 97 04/13/20 21:04 67 98 04/13/20 21:02 58 L 94 04/13/20 21:00 86 116/72 04/13/20 20:59 66 95 04/13/20 20:55 78 91 04/13/20 20:54 69 97 04/13/20 20:49 65 98 04/13/20 20:44 66 98 04/13/20 20:39 69 98 04/13/20 20:34 67 95 04/13/20 20:29 80 111/65 97 04/13/20 20:24 90 92 04/13/20 20:19 88 90 04/13/20 20:14 94 H 95 04/13/20 20:11 90 89 04/13/20 20:09 67 96 04/13/20 20:04 76 96 04/13/20 20:00 98.3 F 18 04/13/20 19:59 74 98 04/13/20 19:54 81 102/58 97 04/13/20 19:49 66 96 04/13/20 19:44 88 96 04/13/20 19:39 76 97 04/13/20 19:38 90 106/61 04/13/20 19:34 98 H 98 04/13/20 19:29 92 H 97 04/13/20 19:24 77 108/57 97 04/13/20 19:19 113 H 96 04/13/20 19:14 87 95 04/13/20 19:09 106 H 95 04/13/20 19:08 100 H 105/55 04/13/20 19:04 106 H 96 04/13/20 18:59 87 96 04/13/20 18:54 87 98 04/13/20 18:53 88 107/57 04/13/20 18:49 86 97 04/13/20 18:44 88 94 04/13/20 18:39 91 H 96 04/13/20 18:36 72 101/54 04/13/20 18:34 78 103/54 98 04/13/20 18:32 80 110/53 04/13/20 18:30 83 109/62 04/13/20 18:29 88 96 04/13/20 18:28 82 111/62 04/13/20 18:26 86 115/66 04/13/20 18:24 71 120/71 96 04/13/20 18:22 90 110/65 04/13/20 18:21 86 91 04/13/20 18:20 84 110/57 04/13/20 18:18 84 117/59 96 04/13/20 18:16 74 114/61 04/13/20 18:14 84 112/61 04/13/20 18:13 80 98 04/13/20 18:12 83 117/62 04/13/20 18:10 85 119/69 04/13/20 18:08 89 97 04/13/20 18:06 80 112/64 04/13/20 18:05 91 04/13/20 18:04 75 122/91 04/13/20 18:02 93 H 96 04/13/20 17:57 76 96 04/13/20 17:56 91 H 91 04/13/20 17:52 84 97 04/13/20 17:47 88 97 04/13/20 17:42 76 96 04/13/20 17:37 91 H 94 04/13/20 17:32 87 98 04/13/20 17:27 90 98 04/13/20 17:22 91 H 96 04/13/20 17:17 91 H 97 04/13/20 17:16 98.1 F 88 20 109/66 04/13/20 17:12 83 99 04/13/20 17:07 85 97 04/13/20 17:02 84 96 04/13/20 16:57 89 96 04/13/20 16:52 77 90 04/13/20 16:47 87 96 04/13/20 16:46 85 94 04/13/20 16:42 93 H 95 04/13/20 16:37 108 H 96 04/13/20 16:33 108 H 117/63 04/13/20 16:19 111 H 98 04/13/20 16:14 91 H 97 04/13/20 16:09 85 98 04/13/20 16:04 98.3 F 89 18 103/59 98 04/13/20 16:00 100 H 103/59 04/13/20 15:59 77 99 Intake and Output 04/13/20 04/13/20 04/14/20 15:59 23:59 07:59 Intake Total 220.083 240 Output Total 400 Balance 220.083 -160 Intake: IV 220.083 Lactated Ringers 1,000 ml 218.75 @ 125 mls/hr IV DIRECT [facility] Rx#:[id number] PITOCin/NS 30 UNIT/500ML 1.333 30 units In 500 ml @ 2 mls/hr IV TITR [facility] Rx#: [id number] Oral 240 Output: Urine 400 Void 400 Other: Total, Intake Amount 240 Total, Output Amount 400 # Voids Void 1 Weight 175 lb 175 lb Estimated Blood Loss 400 - Exam Breasts: Present: normal (good colostrum output noted) Lungs: Present: Normal air movement Abdomen: Present: normal appearance, soft. Absent: distention, tenderness Uterus: Present: normal, firm, fundal height above umbilicus. Absent: bogginess, tenderness Extremities: Present: normal. Absent: edema - Labs Labs: Abnormal lab results 04/13/20 Range/Units 17:00 Hgb 9.6 L (10.1-14.3) gm/dl Hct 29.9 L (30.3-42.9) % MCV 75 L (79-97) fl MCH 24 L (28-32) pg RDW 16.1 H (13.2-15.2) %
--- NOTE | 2020-04-14 07:36 | Discharge Summary ---
Providers - Providers Date of Admission: 04/13/20 16:34 Date of discharge: 04/14/20 Attending physician: DENZEL MENDEZ 04/13/20 22:47 Consult to Credit Verification Clerk [CONS] Routine Reason For Exam: assistance with , SNS Primary care physician: DENZEL MENDEZ Hospitalization Reason for admission: active labor (regular contractions, advanced dilation), IUP at term Delivery: Episiotomy: none Laceration: none complications: none Discharge diagnosis: IUP at term delivered baby: male Condition at discharge: Good Disposition: DC-01 TO HOME OR SELFCARE Plan - Discharge Medications Prescriptions: Ferrous Sulfate [Feosol 325 MG tab] 325 mg PO BID #60 tablet Ibuprofen [Motrin] 600 mg PO Q6H PRN #60 tablet PRN Reason: Pain - Provider Discharge Summary Activity: routine, no sex for 6 weeks, no heavy lifting 4 weeks, no strenuous exercise Diet: routine Instructions: routine Additional instructions: [] Smoking cessation referral if applicable(refer to patient education folder for contact #) [] Refer to [facility]'s [facility] Booklet Call your doctor immediately for: * Fever > 100.5 * Heavy vaginal bleeding ( >1 pad per hour) * Severe persistent headache * Shortness of breath * Reddened, hot, painful area to leg or breast * Drainage or odor from incision. * Keep incision clean and dry at all times and follow doctor's instructions regarding bathing/showering - Follow up plan Follow up: ALLEGRA FUENTES CNM [Advanced Practice Nurse] - 14 Days (Call [facility] to schedule followup in 2 weeks)
--- NOTE | 2020-04-14 09:04 | Post Anesthesia Evaluation ---
- Post Anesthesia Evaluation Patient Participated: Yes Airway Patent: Yes Stable Respiratory Function: Yes Nausea/Vomiting: No Temp > 96.8F: Yes Pain Manageable: Yes Adequeate Hydration: Yes Anesthesia Complications: No Block Receding Appropriately: Yes Patient on Ventilator: No
[2020-04-14] MEDS: HYDROcodone/ACETAMINOPHEN 5-325 MG TAB PO PRN (09:44)
[2020-04-14] MEDS: FERROUS SULFATE 325 MG TAB PO SCH ×2 (09:44→22:11)
[2020-04-14 12:07] LABS: Hematocrit 28.1 % (30.3-42.9); Hemoglobin 8.8 gm/dl (10.1-14.3)
[2020-04-14 16:24] VITALS: BP 105/48
[2020-04-14] MEDS ORDERED: MEASLES, MUMPS & RUBELLA 12,500 UNIT/0.5 ML VACCINE SUB-Q ONE (21:46)
[2020-04-15] MEDS ORDERED: DIPHtheria,PERTUSSIS(ACELL),TETANUS VACCINE/PF 0.5 ML VIAL IM ONE (06:00)
== END 2020-04-14 23:15 | disposition home or self-care (01) | DRG 775 ==
LOC: APU 15:22 → TRG 15:22 → LD 16:31 → TRG 16:34 → LD 16:34 → OB 04-14 00:13
PROVIDERS: ADMIT Obstetrics & Gynecology; ATTEND Obstetrics & Gynecology
PROC: 10E0XZZ Delivery of Products of Conception, External Approach (ICD-10-PCS; principal; 2020-04-13)
PROC: 3E0R3BZ Introduction of Anesthetic Agent into Spinal Canal, Percutaneous Approach (ICD-10-PCS; 2020-04-13)
PROC: 00HU33Z Insertion of Infusion Device into Spinal Canal, Percutaneous Approach (ICD-10-PCS; 2020-04-13)
PROC: 10907ZC Drainage of Amniotic Fluid, Therapeutic from Products of Conception, Via Natural or Artificial Opening (ICD-10-PCS; 2020-04-13)
PROC: 3E0234Z Introduction of Serum, Toxoid and Vaccine into Muscle, Percutaneous Approach (ICD-10-PCS; 2020-04-14)
DX: O76 Abnormality in fetal heart rate and rhythm complicating labor and delivery (principal); O42.92 Full-term premature rupture of membranes, unspecified as to length of time between rupture and onset of labor; O99.02 Anemia complicating childbirth; O62.2 Other uterine inertia; D64.9 Anemia, unspecified; O69.81X0 Labor and delivery complicated by cord around neck, without compression, not applicable or unspecified; Z20.828 Contact with and (suspected) exposure to other viral communicable diseases; O99.214 Obesity complicating childbirth; E66.9 Obesity, unspecified; Z3A.40 40 weeks gestation of pregnancy; Z37.0 Single live birth; Z23 Encounter for immunization; Z79.899 Other long term (current) drug therapy
CPT/HCPCS: 36415; 59025; 85014; 85018; 85027; 86592; 86850; 86900; 86901; 96360; 96361; 96365; 96366; 96372; G0378; A6250; J2210; J2590; J7120; U0003

== ENCOUNTER 2021-05-30 21:45 | Outpatient (CLI) | payer MEDICAID ==
[2021-05-30 22:16] VITALS: BP 107/65
[2021-05-30] MEDS ORDERED: LACTATED RINGERS 1,000 ML ONE (23:38)
[2021-05-31 00:21] LABS: Bilirubin,Urine NEG (Negative); Blood,Urine NEG (Negative); Color,Urine Yellow (Yellow); Mucus,Urine 3+ /HPF
== END 2021-05-31 00:48 | disposition home or self-care (01) ==
LOC: TRG 21:45 → APU 21:48 → TRG 05-31 00:48
PROVIDERS: ATTEND Obstetrics & Gynecology
DX: Z34.83 Encounter for supervision of other normal pregnancy, third trimester (principal); Z3A.38 38 weeks gestation of pregnancy
CPT/HCPCS: 59025; 81001